=== PATIENT | female | born 1980 | race Caucasian/White ===

== ENCOUNTER 2019-02-13 08:46 | Emergency (ER) | payer MEDICAID | END 2019-02-13 11:09 | disposition home or self-care (01) | LOC: FTE 08:46 | DX: R05 Cough (principal) | CPT/HCPCS: 71046; 81025; 99283-25 ==

== ENCOUNTER 2019-02-14 01:14 | Emergency (ER) | payer MEDICAID ==
[2019-02-14] MEDS: predniSONE 20 MG TAB PO (03:02)
[2019-02-14] MEDS: ALBUTEROL 0.083% (NEB) 2.5 MG/3 ML AMP HHN (03:21)
[2019-02-14] MEDS: IPRATROPIUM (NEB) 0.5 MG/2.5 ML AMP HHN (03:21)
== END 2019-02-14 04:13 | disposition home or self-care (01) ==
LOC: FTE 01:14
DX: J45.909 Unspecified asthma, uncomplicated (principal); Z76.0 Encounter for issue of repeat prescription
CPT/HCPCS: 94664; 99283